=== PATIENT | male | born 1995 | race African-American/Black ===

== ENCOUNTER 2018-05-27 23:03 | Emergency (ER) | payer OTHER ==
[~2018-05-27] VITALS: Ht 193 cm; Wt 74.8 kg
[2018-05-28 00:47] VITALS: BP 127/68
== END 2018-05-28 00:48 | disposition home or self-care (01) ==
LOC: ER 23:03
DX: J10.1 Influenza due to other identified influenza virus with other respiratory manifestations (principal); B27.90 Infectious mononucleosis, unspecified without complication; Z91.013 Allergy to seafood